=== PATIENT | female | born 1965 | race African-American/Black ===

== ENCOUNTER 2018-07-25 10:21 | Inpatient (IN) | payer MEDICAID ==
[~2018-07-25] VITALS: Ht 170.2 cm; Wt 106.6 kg
[2018-07-25] MEDS ORDERED: ONDANSETRON HCL 4MG/2ML INJ IV STA (11:08)
[2018-07-25] MEDS ORDERED: MORPHINE SULFATE 4 MG/ML CPJ (NOT FOR IM USE) IV STA (11:08)
[2018-07-25] MEDS ORDERED: ASPIRIN 81MG TABLET PO ONE (11:15)
[2018-07-25] MEDS ORDERED: NITROGLYCERIN OINT 1GM/INCH UDPKT TD ONE (11:15)
[2018-07-25 11:47] LABS: BASOPHILS % 0.9 % (0.0-2.0); HEMATOCRIT. 40.5 % (36.0-48.0); HEMOGLOBIN. 13.3 g/dL (12.0-16.0); LYMPHOCYTES % 25.2 % (20.0-50.0); MEAN CORPUSCULAR HEMOGLOBIN 27.5 pg (28.0-32.0); MEAN CORPUSCULAR VOLUME 83.9 fL (81.0-99.0); MEAN PLATELET VOLUME 7.7 fl (7.4-10.4); MONOCYTES % 11.5 % (2.0-8.0); NEUTROPHILS % 57.4 % (40.0-76.0); PLATELET 313 x1000/uL (130-400); RED BLOOD CELL COUNT 4.83 mill/uL (4.2-5.4); RED CELL DISTRIBUTION WIDTH 15.9 % (11.6-14.6)
[2018-07-25 11:51] LABS: CHLORIDE 110 mEq/L (98-107); PARTIAL THROMBOPLASTIN TIME 27.1 sec (23.4-31.0); PROTHROMBIN TIME 9.7 sec (9.1-11.1)
[2018-07-25 12:05] LABS: *AMPHETAMINES SCREEN URINE NEGATIVE (NEGATIVE); *BARBITURATES SCREEN URINE NEGATIVE (NEGATIVE); *BENZODIAZEPINES SCREEN URINE NEGATIVE (NEGATIVE)
[2018-07-25 12:06] LABS: *COCAINE SCREEN URINE NEGATIVE (NEGATIVE); CANNABINOID URINE SCREEN NEGATIVE (NEGATIVE); METHADONE URINE SCREEN NEGATIVE (NEGATIVE); OPIATES URINE SCREEN NEGATIVE (NEGATIVE); PHENCYCLIDINE URINE SCREEN NEGATIVE (NEGATIVE)
[2018-07-25] MEDS ORDERED: REGADENOSON 0.4 MG/5 ML IV ONE (13:00)
[2018-07-25] MEDS ORDERED: AMLODIPINE 2.5MG TABLET PO SCH (13:30)
[2018-07-25] MEDS ORDERED: IPRATROPIUM/ALBUTEROL 0.5-3(2.5)MG/3ML NEB INH PRN (16:15)
[2018-07-25] MEDS ORDERED: ACETAMINOPHEN 325MG TABLET PO PRN (16:15)
[2018-07-25 17:23] LABS: CREATINE KINASE MB FRACTION 1.3 ng/mL (0.5-3.6)
[2018-07-25 17:28] LABS: HCG SCREEN NEGATIVE
[2018-07-25 17:38] LABS: CLARITY URINE CLOUDY (CLEAR); COLOR URINE YELLOW (YELLOW); KETONES URINE NEGATIVE (NEGATIVE); LEUKOCYTE ESTERASE URINE 3+ (NEGATIVE); NITRITE URINE NEGATIVE (NEGATIVE); OCCULT BLOOD URINE TRACE (NEGATIVE); PH URINE 5.5 (4.5-8.0); PROTEIN URINE NEGATIVE (NEGATIVE); SPECIFIC GRAVITY URINE 1.014 (1.005-1.030); UROBILINOGEN URINE 0.2 E.U./dL (0.2-1.0)
[2018-07-25 23:00] VITALS: BP 148/83
[2018-07-25 23:50] VITALS: BP 148/83
[2018-07-26 04:00] VITALS: BP 114/62
[2018-07-26 08:00] VITALS: BP 128/85
[2018-07-26] MEDS ORDERED: ASPIRIN 81MG EC TABLET PO SCH (09:00)
[2018-07-26] MEDS ORDERED: REGADENOSON 0.4 MG/5 ML IV ONE (09:27)
[2018-07-26 12:32] LABS: BASOPHILS % 0.3 % (0.0-2.0); EOSINOPHILS % 2.7 % (0.0-5.0); HEMATOCRIT. 37.8 % (36.0-48.0); HEMOGLOBIN. 12.7 g/dL (12.0-16.0); LYMPHOCYTES % 16.4 % (20.0-50.0); MEAN CORPUSCULAR HEMOGLOBIN 28.2 pg (28.0-32.0); MEAN CORPUSCULAR VOLUME 83.6 fL (81.0-99.0); MEAN PLATELET VOLUME 7.5 fl (7.4-10.4); MONOCYTES % 7.8 % (2.0-8.0); NEUTROPHILS % 72.8 % (40.0-76.0); PLATELET 287 x1000/uL (130-400); RED BLOOD CELL COUNT 4.52 mill/uL (4.2-5.4); RED CELL DISTRIBUTION WIDTH 15.6 % (11.6-14.6)
[2018-07-26 12:37] LABS: CHLORIDE 110 mEq/L (98-107)
[2018-07-26 12:42] VITALS: BP_SYST 128; BP_SYST 131; BP_DIAS 82; BP_DIAS 85
[2018-07-26 12:43] LABS: PHOSPHORUS 3.4 mg/dL (2.5-4.9)
== END 2018-07-26 15:17 | disposition home or self-care (01) | DRG 203 ==
LOC: ER 10:21 → EDBEDREQ 11:11 → 8WST 11:42 → EDBEDREQ 11:46 → ENRESERV 21:29
PROVIDERS: ADMIT Internal Medicine; ATTEND Internal Medicine
DX: M94.0 Chondrocostal junction syndrome [Tietze] (principal); E87.8 Other disorders of electrolyte and fluid balance, not elsewhere classified; I11.9 Hypertensive heart disease without heart failure
CPT/HCPCS: 36415; 71045; 78452; 80048; 80061; 80305; 81025; 82550; 82553; 83036; 83735; 83880; 84100; 84443; 84484; 84703; 93005; 93017; 93306; 96374; 96375; 99285; A9500; J2270; J2405; J2785

== ENCOUNTER 2023-01-27 11:42 | Emergency (ER) | payer MEDICAID ==
[~2023-01-27] VITALS: Ht 167.6 cm; Wt 91.0 kg
[2023-01-27 11:45] VITALS: BP 150/104; PULSE 85; RESP 19; TEMP 98.3; O2SAT 95
[2023-01-27 12:31] LABS: BASOPHILS % 0.6 % (0.0-2.0); EOSINOPHILS % 2.4 % (0.0-5.0); HEMATOCRIT. 38.1 % (36.0-48.0); LYMPHOCYTES % 21.4 % (20.0-50.0); MEAN CORPUSCULAR HEMOGLOBIN 28.1 pg (28.0-32.0); MEAN CORPUSCULAR VOLUME 82.6 fL (81.0-99.0); MEAN PLATELET VOLUME 7.7 fl (7.4-10.4); MONOCYTES % 9.3 % (2.0-8.0); NEUTROPHILS % 66.3 % (40.0-76.0); PLATELET 303 x1000/uL (130-400); RED BLOOD CELL COUNT 4.61 mill/uL (4.2-5.4); RED CELL DISTRIBUTION WIDTH 15.2 % (11.6-14.6)
[2023-01-27 12:39] LABS: CHLORIDE 110 mEq/L (98-107)
[2023-01-27 15:39] LABS: CLARITY URINE CLEAR (CLEAR); COLOR URINE YELLOW (YELLOW); KETONES URINE NEGATIVE (NEGATIVE); LEUKOCYTE ESTERASE URINE TRACE (NEGATIVE); NITRITE URINE NEGATIVE (NEGATIVE); OCCULT BLOOD URINE NEGATIVE (NEGATIVE); PH URINE 5.5 (4.5-8.0); PROTEIN URINE NEGATIVE (NEGATIVE); SPECIFIC GRAVITY URINE 1.012 (1.005-1.030); UROBILINOGEN URINE 0.2 E.U./dL (0.2-1.0)
[2023-01-27] MEDS ORDERED: IBUP-2029 MT (15:57)
== END 2023-01-27 14:55 | disposition home or self-care (01) ==
LOC: ER 11:49
DX: R10.9 Unspecified abdominal pain (principal); I10 Essential (primary) hypertension
CPT/HCPCS: 36415; 74176; 80053; 81003; 85025; 99291